=== PATIENT | female | born 1955 | race Caucasian/White ===

== ENCOUNTER 2021-09-01 13:49 | Emergency (ER) | payer BC ==
[~2021-09-01] VITALS: Ht 172.7 cm; Wt 83.4 kg
[2021-09-01] MEDS: IV NORMAL SALINE 1,000ML 1,000 ML IV ONE (14:45)
[2021-09-01] MEDS: IBUPROFEN 600 MG TABLET. PO ONE (14:55)
[2021-09-01] MEDS: MORPHINE SULFATE 4 MG/ML DISP.SYRIN. IV ONE ×2 (14:55→17:26)
[2021-09-01] MEDS: ONDANSETRON PF 4 MG/2 ML VIAL. IVP ONE (14:55)
[2021-09-01 14:56] LABS: CALCIUM 8.8 mg/dL (8.5-10.1); CREATININE 1.1 mg/dL (0.6-1.0); GFR 50.2; POTASSIUM 3.6 mmol/L (3.5-5.1)
[2021-09-01 14:59] LABS: BASO # 0.1 x10^3/uL (0.0-0.2); BASO % 0 % (0-3); EOS % 0 % (0-3); HEMATOCRIT 39.3 % (36.0-47.0); HEMOGLOBIN 12.9 g/dL (12.0-15.5); LYMPH # 0.7 x10^3/uL (1.0-4.8); LYMPH % 3 % (24-48); MEAN CORPUSCULAR HEMOGLOBIN 30 pg (25-35); MEAN CORPUSCULAR HGB CONC 33 g/dL (31-37); MEAN CORPUSCULAR VOLUME 90 fL (79-100); MONO # 1.4 x10^3/uL (0.0-1.1); MONO % 7 % (0-9); NEUT # 18.5 x10^3uL (1.8-7.7); NEUT % 90 % (31-73); PLATELET COUNT 222 x10^3/uL (140-400); RED BLOOD COUNT 4.36 x10^6/uL (3.50-5.40); RED CELL DISTRIBUTION WIDTH 13.3 % (11.5-14.5); WHITE BLOOD COUNT 20.7 x10^3/uL (4.0-11.0)
--- NOTE | 2021-09-01 15:00 | RAD ---
Single view of the chest. 09/01/2021 2:52 PM Indication: Reason: NAUSEA / Spl. Instructions: / History: Comparison: None Findings: There is no focal consolidation. There is no pleural effusion or pneumothorax. The cardiome diastinal silhouette and pulmonary vasculature are within normal limits. No acute osseous abnormaliti es are seen. Impression: No evidence of acute cardiopulmonary process. Electronically signed by: Sergio Tay MD (09/01/2021 2:58 PM) [id number]
[2021-09-01 15:02] LABS: ALBUMIN 3.1 g/dL (3.4-5.0); ALBUMIN/GLOBULIN RATIO 0.8 (1.0-1.7); MAGNESIUM 2.2 mg/dL (1.8-2.4); TOTAL BILIRUBIN 1.7 mg/dL (0.2-1.0); TOTAL PROTEIN 7.1 g/dL (6.4-8.2)
--- NOTE | 2021-09-01 15:06 | RAD ---
CT ABDOMEN+PELVIS WO dated 09/01/2021 2:52 PM Indication:Reason: RUQ PAIN / Spl. Instructions: / History: Comparison: No comparison is available. Technique: Helical noncontrast images were performed. One or more of the following individualized dose reduction techniques were utilized for this examinat ion: 1. Automated exposure control 2. Adjustment of the mA and/or kV according to patient size 3. Use of iterative reconstruction technique Findings: There is mild dependent atelectasis. The lung bases otherwise are clear. The liver and spleen are dayday ogeneous in density and normal in configuration. There is a tiny cyst in the right lobe of liver. Savanah luation of the solid organs is limited without IV contrast. The kidneys show no apparent mass or obst ruction. There is some motion artifact through this region. A small area of calcification is seen at the lower left kidney. The adrenal glands are not enlarged. The pancreas appears normal. No retroperi toneal or mesenteric adenopathy is seen. There is no apparent abdominal soft tissue mass. There is an inflammatory process in the right lower abdomen at the cecum. Cecal wall appears thickened. At the b ase of the cecum, there is a calcification measuring about 8 mm. Posterior and inferior to this, ther e is a complex fluid and gas collection extending over about 3.9 x 3.1 cm. The appendix is not clearl y seen separate from this region. Thickened appendix may be shown along the posterior aspect of this abnormality. There is diffuse edema in the surrounding fat Images through the pelvis show no abnormality of the distal ureters. The bladder was not well distend ed, but appears normal. No pelvic or inguinal adenopathy is seen. There is mild free pelvic fluid. No separate pelvic mass or other inflammatory process is evident. IMPRESSION: Findings are thought to indicate ruptured appendicitis with early abscess formation. FOR INTERNAL CODING PURPOSES Critical result: Findings discussed with Selma Ritchie at 09/01/2021 3:03 PM. RESULT CODE: (C) Electronically signed by: Yannick Coleman Jr., MD (09/01/2021 3:04 PM) [id number]
[2021-09-01] MEDS ORDERED: CEFEPIME HCL 2 GM VIAL IV ONE (15:42)
[2021-09-01] MEDS ORDERED: IV NORMAL SALINE 100ML 100 ML ONE (15:42)
--- NOTE | 2021-09-01 15:42 | PHYS DOC ---
Past History Past Surgical History: Hysterectomy, Other Additional Past Surgical Histo: nodules removed bilat breast Alcohol Use: None General Adult EDM: Chief Complaint: NAUSEA/VOMITING/DIARRHEA HPI: HPI: Patient is a 65-year-old female who presents with right upper quadrant pain, nausea/vomiting/diarrhea and fever that started yesterday. Patient's t emperature on arrival was 102. Last dose of Tylenol was at 4 AM. Patient states "I have not been able to eat anything because I keep vomiting". Denies anything making pain better or worse. Review of Systems: Review of Systems: ROS At least 10 ROS systems have been reviewed and are negative except as documented in the HPI. General: Negative except as outlined in HPI above. Skin: Negative except as outlined in HPI above. HEENT: Negative except as outlined in HPI above. Neck: Negative except as outlined in HPI above. Respiratory: Negative except as outlined in HPI above.. Cardiovascular: Negative except as outlined in HPI above. Abdomen: Negative except as outlined in HPI above. : Negative except as outlined in HPI above. Back/MSK: Negative except as outlined in HPI above. Neuro: Negative except as outlined in HPI above. Psych: Negative except as outlined in HPI above. Current Medications: Current Meds: Current Medications Medications (Trade) Dose Ordered Sig/Barbra Start Time Stop Time Status Last Admin Dose Admin Cefepime HCl 2 gm/ Sodium Chloride 100 ml @ 200 mls/hr Q8HRS 09/01/21 15:30 Ibuprofen (Motrin) 600 mg 1X ONCE 09/01/21 14:45 09/01/21 14:46 DC 09/01/21 14:55 600 MG Metronidazole 100 ml @ 100 mls/hr Q8HRS 09/01/21 15:30 Morphine Sulfate (Morphine 4mg Syringe) 4 mg 1X ONCE 09/01/21 14:45 09/01/21 14:46 DC 09/01/21 14:55 4 MG Ondansetron HCl (Zofran) 4 mg 1X ONCE 09/01/21 14:45 09/01/21 14:46 DC 09/01/21 14:55 4 MG Sodium Chloride 1,000 ml @ 1,000 mls/hr 1X ONCE 09/01/21 14:45 09/01/21 15:44 09/01/21 14:45 1,000 MLS/HR Allergies: Allergies: Allergies Coded Allergies Type Severity Reaction Last Updated Verified No Known Drug Allergies 09/01/21 No Physical Exam: PE: Constitutional: Well developed, well nourished, no acute distress, non-toxic appearance. [] HENT: Normocephalic, atraumatic, bilateral external ears normal, oropharynx moist, no oral exudates, nose normal. [] Eyes: PERRLA, EOMI, conjunctiva normal, no discharge. [] Neck: Normal range of motion, no tenderness, supple, no stridor. [] Cardiovascular:Heart rate sinus tachycardia, no murmur [] Lungs & Thorax: Bilateral breath sounds clear to auscultation [] Abdomen: Bowel sounds normal, soft, right upper quadrant and right lower quadrant tenderness, no masses Skin: Warm, dry, no erythema, no rash. [] Back: No tenderness, no CVA tenderness. [] Extremities: No tenderness, no cyanosis, no clubbing, ROM intact, no edema. [] Neurologic: Alert and oriented X 3, normal motor function, normal sensory function, no focal deficits noted. [] Psychologic: Affect normal, judgement normal, mood normal. [] Current Patient Data: Labs: Laboratory Tests Test 09/01/21 14:25 White Blood Count 20.7 x10^3/uL (4.0-11.0) H Red Blood Count 4.36 x10^6/uL (3.50-5.40) Hemoglobin 12.9 g/dL (12.0-15.5) Hematocrit 39.3 % (36.0-47.0) Mean Corpuscular Volume 90 fL (79-100) Mean Corpuscular Hemoglobin 30 pg (25-35) Mean Corpuscular Hemoglobin Concent 33 g/dL (31-37) Red Cell Distribution Width 13.3 % (11.5-14.5) Platelet Count 222 x10^3/uL (140-400) Neutrophils (%) (Auto) 90 % (31-73) H Lymphocytes (%) (Auto) 3 % (24-48) L Monocytes (%) (Auto) 7 % (0-9) Eosinophils (%) (Auto) 0 % (0-3) Basophils (%) (Auto) 0 % (0-3) Neutrophils # (Auto) 18.5 x10^3uL (1.8-7.7) H Lymphocytes # (Auto) 0.7 x10^3/uL (1.0-4.8) L Monocytes # (Auto) 1.4 x10^3/uL (0.0-1.1) H Eosinophils # (Auto) 0.0 x10^3/uL (0.0-0.7) Basophils # (Auto) 0.1 x10^3/uL (0.0-0.2) Platelet Estimate Pending Sodium Level 133 mmol/L (136-145) L Potassium Level 3.6 mmol/L (3.5-5.1) Chloride Level 99 mmol/L (98-107) Carbon Dioxide Level 25 mmol/L (21-32) Anion Gap 9 (6-14) Blood Urea Nitrogen 16 mg/dL (7-20) Creatinine 1.1 mg/dL (0.6-1.0) H Estimated GFR (Cockcroft-Gault) 50.2 BUN/Creatinine Ratio 15 (6-20) Glucose Level 129 mg/dL (70-99) H Lactic Acid Level 1.6 mmol/L (0.4-2.0) Calcium Level 8.8 mg/dL (8.5-10.1) Magnesium Level 2.2 mg/dL (1.8-2.4) Total Bilirubin 1.7 mg/dL (0.2-1.0) H Aspartate Amino Transferase (AST) 20 U/L (15-37) Alanine Aminotransferase (ALT) 29 U/L (14-59) Alkaline Phosphatase 76 U/L (46-116) Total Protein 7.1 g/dL (6.4-8.2) Albumin 3.1 g/dL (3.4-5.0) L Albumin/Globulin Ratio 0.8 (1.0-1.7) L Lipase 61 U/L (73-393) L SARS-CoV-2 Antigen (Rapid) Negative (NEGATIVE) Vital Signs: Vital Signs Date Time Temp Pulse Resp B/P (MAP) Pulse Ox O2 Delivery O2 Flow Rate FiO2 09/01/21 14:55 18 99 09/01/21 14:09 102.1 131 119/60 (79) Room Air EKG: EKG: [] Radiology/Procedures: Radiology/Procedures: []Single view of the chest. 09/01/2021 2:52 PM Indication: Reason: NAUSEA / Spl. Instructions: / History: Comparison: None Findings: There is no focal consolidation. There is no pleural effusion or pneumothorax. The cardiomediastinal silhouette and pulmonary vasculature are within normal limits. No acute osseous abnormalities are seen. Impression: No evidence of acute cardiopulmonary process. Electronically signed by: Sergio Tay MD (09/01/2021 2:58 PM) [id number] CT ABDOMEN+PELVIS WO dated 09/01/2021 2:52 PM Indication:Reason: RUQ PAIN / Spl. Instructions: / History: Comparison: No comparison is available. Technique: Helical noncontrast images were performed. One or more of the following individualized dose reduction techniques were utilized for this examination: 1. Automated exposure control 2. Adjustment of the mA and/or kV according to patient size 3. Use of iterative reconstruction technique Findings: There is mild dependent atelectasis. The lung bases otherwise are clear. The liver and spleen are homogeneous in density and normal in configuration. There is a tiny cyst in the right lobe of liver. Evaluation of the solid organs is limited without IV contrast. The kidneys show no apparent mass or obstruction. There is some motion artifact through this region. A small area of calcification is seen at the lower left kidney. The adrenal glands are not enlarged. The pancreas appears normal. No retroperitoneal or mesenteric adenopathy is seen. There is no apparent abdominal soft tissue mass. There is an inflammatory process in the right lower abdomen at the cecum. Cecal wall appears thickened. At the base of the cecum, there is a calcification measuring about 8 mm. Posterior and inferior to this, there is a complex fluid and gas collection extending over about 3.9 x 3.1 cm. The appendix is not clearly seen separate from this region. Thickened appendix may be shown along the posterior aspect of this abnormality. There is diffuse edema in the surrounding fat Images through the pelvis show no abnormality of the distal ureters. The bladder was not well distended, but appears normal. No pelvic or inguinal adenopathy is seen. There is mild free pelvic fluid. No separate pelvic mass or other inflammatory process is evident. IMPRESSION: Findings are thought to indicate ruptured appendicitis with early abscess formation. FOR INTERNAL CODING PURPOSES Critical result: Findings discussed with Selma Ritchie at 09/01/2021 3:03 PM. RESULT CODE: (C) Electronically signed by: Yannick Coleman Jr., MD (09/01/2021 3:04 PM) [id number] Heart Score: C/O Chest Pain: No Risk Factors: Risk Factors: DM, Current or recent (<one month) smoker, HTN, HLP, family history of CAD, obesity. Risk Scores: Score 0 - 3: 2.5% MACE over next 6 weeks - Discharge Home Score 4 - 6: 20.3% MACE over next 6 weeks - Admit for Clinical Observation Score 7 - 10: 72.7% MACE over next 6 weeks - Early Invasive Strategies Course & Med Decision Making: Course & Med Decision Making Pertinent Labs and Imaging studies reviewed. (See chart for details) [] 65-year-old female presents with right upper quadrant pain, nausea/vomiting/diarrhea and fever. Patient's temperature on arrival was 102. Sinus tachycardia, 130. Patient given 4 mg of morphine, 4 mg of Zofran, 600 mg Motrin, NS bolus. WBC, 20.7. CT shows ruptured appendicitis with early abscess formation. Discussed results with patient. Advised patient that we would need to transfer her to [facility] for further treatment. Patient agrees with admission plan. Patient started on Maxipime and metronidazole. Consulted surgeon, Dr. Morales, at [facility]. I also spoke with Dr. Bass who will be accepting patient. Montez Disclaimer: Montez Disclaimer: This electronic medical record was generated, in whole or in part, using a voice recognition dictation system. Departure Departure: Impression: Primary Impression: Appendicitis Qualified Codes: K35.33 - Acute appendicitis with perforation and localized peritonitis, with abscess Additional Impression: Nausea & vomiting Qualified Codes: R11.2 - Nausea with vomiting, unspecified Disposition: 02 SHORT [facility] Admitting Physician: Other Condition: STABLE Referrals: NEELIMA NICHOLSON PAC (PCP) SELMA RITCHIE APRN Sep 01, 2021 15:42
[2021-09-01] MEDS: CEFEPIME HCL 2 GM in IV NORMAL SALINE 100ML 100 ML IV SCH (15:46)
[2021-09-01 17:00] VITALS: BP 107/54
[2021-09-01 17:55] LABS: % BANDS 2 % (0-9); % LYMPHS 3 % (24-48); % MONOS 6 % (0-10); % SEGS 89 % (35-66)
[2021-09-01 17:56] LABS: PLT ESTIMATE ADEQUATE (ADEQUATE)
== END 2021-09-01 17:56 | disposition short-term general hospital (02) ==
LOC: ER 13:49
DX: K35.33 Acute appendicitis with perforation, localized peritonitis, and gangrene, with abscess (principal); R11.2 Nausea with vomiting, unspecified; Z20.822 Contact with and (suspected) exposure to COVID-19; Z90.710 Acquired absence of both cervix and uterus
CPT/HCPCS: 36415; 71045; 74176; 80053; 83605; 83690; 83735; 85007; 85025; 87040; 87426; 96361; 96365; 96366; 96368; 96375; 96376; 99285; J0692; J2270; J2405; J3490; J7030